=== PATIENT | male | born 1955 | race Caucasian/White ===

== ENCOUNTER 2023-05-07 12:52 | Emergency (ER) | payer SELFPAY ==
[2023-05-07 13:00] VITALS: BP 192/85; PULSE 65; RESP 16; TEMP 36.9; O2SAT 98
[2023-05-07] MEDS: Acetaminophen 500 MG TAB 1000 MG PO (13:43)
[2023-05-07] MEDS: Ketorolac 15 MG/ML VIAL IM (13:45)
--- NOTE | 2023-05-07 13:58 | DI.RAD_ITS ---
Exam(s) XR ELBOW LT COMPLETE EXAM: XR ELBOW LT COMPLETE CLINICAL HISTORY: dog bite, deep puncture x 2. TECHNIQUE: 2D digital imaging was performed. COMPARISON: No exams were available for comparison FINDINGS: 3 views No evidence of acute fracture or joint effusion and there is no swelling of the olecranon bursa. No evidence of fracture of the radial head and neck. Mild degenerative changes are noted on the lateral aspect of the radial head. No loose intra-articular bodies. No osteochondral defects of level capi tellum and trochlea. No loose intra-articular bodies. Bone density normal. No osseous lesions No radiopaque foreign body evident. IMPRESSION: No fracture or joint effusion. No radiopaque foreign body seen. DATA REPOSITORY: RADIATION DOSE DELIVERED:
--- NOTE | 2023-05-07 14:23 | ED.GENADUL_ITS ---
Discharge Plan Disposition Patient Disposition: Home Condition: Good Discharge Details Clinical Impression: Dog bite of left elbow, Laceration of left elbow Primary Care Provider: Kati,Local ED Provider: Ammy Little Home Meds and New Rx's Prescriptions: New amoxicillin-pot clavulanate 875-125 mg tablet 1 tab PO Q12H Qty: 20 0RF amoxicillin-pot clavulanate 875-125 mg tablet 1 tab PO Q12H Qty: 20 0RF amoxicillin-pot clavulanate 875-125 mg tablet 1 tab PO Q12H Qty: 20 0RF No Action calcium carbonate-vitamin D3 [Calcium + D] 600 mg-5 mcg (200 unit) Tablet 1 tab PO DAILY aspirin [Aspir-81] 81 mg Tablet,Delayed Release (Dr/Ec) 81 mg PO DAILY ferrous fumarate 55 mg (18 mg iron) Tablet Extended Release 55 mg PO DAILY tamsulosin [Flomax] 0.4 mg Capsule 0.4 mg PO DAILY irbesartan 150 mg Tablet 150 mg PO DAILY Discharge Instructions Instructions: Animal Bite (ED), Laceration (ED) Additional Instructions: Take the antibiotic twice a day until it is all gone. Take tylenol and ibuprofen over the counter as needed for pain; follow the directions on the bottle. Keep your wound clean and dry. You can use antibiotic ointment once a day. Follow up with your primary care doctor for removal of your sutures. Return to the emergency department for new or worsening symptoms including thick green/white discharge from your wound, severe pain, numbness/tingling, difficulty using your arm, fever, or if you have any other concerns. Medical Decision Making 67yo M with HTN, s/p TAVR on baby aspirin, presenting for dog bite to left elbow; friend's dog, reportedly UTD on immunizations. Unknown last tetanus. Vital signs reassuring, two puncture wounds to left elbow. No indication of neurovascular compromise on exam. Tylenol and Toradol for pain, teatnus updated, PO augment. Plain film elbow reviewed, no displaced fracture or foreign body on my view, agree with radiology read below. Given proximity to joint, orthopedics consulted, wound washed out at bedside. Discharged home; discharge instructions including return precautions were reviewed with patient who verbalized understanding. All questions were answered and they are in full agreement with the plan. Imaging Data Radiologic Study: Imaging: X-Ray Radiologist's impression: IMPRESSION: No fracture or joint effusion. No radiopaque foreign body seen. HPI General Mode of arrival: ambulatory . Date/Time Provider Initiated Documentation: 05/07/23 13:07 . Limitations to Documentation: no limitations . Information obtained by: patient . HPI Narrative: 67yo M with HTN, s/p TAVR on baby aspirin, presenting for dog bite.? Friend's dog (chocolate lab type) bit his left elbow.? Did not fall or strike his head.? No pain or injury elsewhere.? States no numbness/tingling and that he is able to move his arm normally.? He was in his usual state of health prior to this event.? No fevers, chills, rash, nausea, vomiting, chest pain, shortness of breath, or other concerns. Dog reportedly UTD on immunizations. Unknown last tetanus. Related Data Home Medications Medication Instructions Recorded Confirmed amoxicillin 875 mg-potassium 1 tab PO Q12H #20 tabs 05/07/23 clavulanate 125 mg tablet amoxicillin 875 mg-potassium 1 tab PO Q12H #20 tabs 05/07/23 clavulanate 125 mg tablet amoxicillin 875 mg-potassium 1 tab PO Q12H #20 tabs 05/07/23 clavulanate 125 mg tablet aspirin 81 mg tablet,delayed 81 mg PO DAILY 05/07/23 05/07/23 release calcium carbonate 600 mg-vitamin 1 tab PO DAILY 05/07/23 05/07/23 D3 5 mcg (200 unit) tablet ferrous fumarate 55 mg (18 mg 55 mg PO DAILY 05/07/23 05/07/23 iron) tablet,extended release irbesartan 150 mg tablet 150 mg PO DAILY 05/07/23 05/07/23 tamsulosin 0.4 mg capsule (Flomax) 0.4 mg PO DAILY 05/07/23 05/07/23 Previous Rx's Medication Instructions Recorded amoxicillin 875 mg-potassium 1 tab PO Q12H #20 tabs 05/07/23 clavulanate 125 mg tablet amoxicillin 875 mg-potassium 1 tab PO Q12H #20 tabs 05/07/23 clavulanate 125 mg tablet amoxicillin 875 mg-potassium 1 tab PO Q12H #20 tabs 05/07/23 clavulanate 125 mg tablet Allergies Allergy/AdvReac Type Severity Reaction Status Date / Time No Known Allergies Allergy Unverified 05/07/23 13:07 General Stated Complaint: AnimalBite LALO: 3 Review of Systems Narrative: see HPI PFSH All Active Problems (Updated 05/07/23 @ 17:14 by Ammy Little MD) Dog bite of left elbow (Acute) Laceration of left elbow (Acute) Social History Smoking/Tobacco Use Status: Unknown Smoking risk assessment performed?: Yes Exam Narrative Exam Narrative: General: Alert, well appearing, well nourished Head: Normocephalic, atraumatic Neck: Trachea midline, Neck supple. Cardiac: RRR, no murmurs appreciated Resp: No respiratory distress. CTAB. Abd: Soft, non-distended, nontender : No suprapubic tenderness. Extremities: No deformities. No peripheral edema. Left elbow with two ~0.5cm puncture wounds to elbow medial and anterior aspects of joint. Distal strength, pulses, and sensation intact. Neurologic: GCS 15. Moves all extremities freely against gravity Course Vital Signs Vital signs: Vital Signs Temperature 36.9 C 05/07/23 13:00 Pulse 65 05/07/23 13:00 Respiratory Rate 16 05/07/23 13:00 Blood Pressure 192/85 H 05/07/23 13:00 Pulse Oximetry 98 05/07/23 13:00 Temperature 36.9 C 05/07/23 13:00 Temperature Source Skin 05/07/23 13:00 Pulse 65 05/07/23 13:00 Respiratory Rate 16 05/07/23 13:00 Blood Pressure 192/85 H 05/07/23 13:00 Blood Pressure Position Sitting 05/07/23 13:00 Pulse Oximetry 98 05/07/23 13:00 Oxygen Delivery Method Room Air 05/07/23 13:00 Oxygen Flow Rate 0 05/07/23 13:00 Pain Level 6 05/07/23 13:00
[2023-05-07] MEDS: Amoxicillin 875/Clav. 125 TAB PO (17:35)
--- NOTE | 2023-05-07 23:30 | W.ORTHOCONSU ---
Date of service: 05/07/23 Time of Service: 16:10 History of Present Illness History of Present Illness Chief Complaint: Left Elbow Dog Bite Narrative: Gm is a 67-year-old active male who was unfortunately attacked by a Labrador dog earlier today. The dog was thought to be caged but escaped and attacked him and his , causing an injury to the left elbow. There is some bleeding from the left elbow from 2 puncture type wounds. Given the location near the elbow I was called for consultation. He denies any significant pain with gentle elbow range of motion. The bleeding has now stopped. He denies numbness or tingling. Per report, the dog is up-to-date on all necessary vaccines and the contact information for the dog's assembly and packing supervisor is known. Consults Consult date: 05/07/23 Requesting physician: Ammy Little Consult Reason Deep Dog Bite Laceration to Left Elbow Assessment and Plan Assessment and plan (1) Laceration of left elbow: Status: Acute Assessment and plan: Fam is a 67-year-old active male who unfortunate was attacked by dog today resulting in 2 lacerations to his left elbow. They both penetrate down into the deeper layers. However, there is no apparent disruption of the deeper muscles or tendons about the extensor wad of the left elbow for the first, more radial lacerations. The more dorsal laceration is adjacent to the radial head and the olecranon and could be in the location of the joint as it is not nearby the soft spot of the lateral elbow joint. However, there is no air on the x-ray. There is no crepitus on exam. There is no expressible fluid or draining fluid to suggest that involves the joint. I did discuss potentially a joint challenge but I do not think that is indicated at this time given the benign examination. There is a small tenderness structure seen in the base of the more lateral wound but it has no clear origin. And there is no instability with elbow testing. Therefore this point I recommend an aggressive irrigation and debridement of these wounds, done at the bedside. I loosely closed the 2 wounds with 4-0 nylon. The wounds were dressed with Xeroform, 4 x 4's, Kerlix and Coban wrap. Suture should be removed between 7 to 10 days with repeat evaluation. Review of Systems All systems reviewed & are unremarkable except as noted in HPI and below PFSH All Active Problems Dog bite of left elbow (Acute) Laceration of left elbow (Acute) Social History Smoking/Tobacco Use Status: Unknown Smoking risk assessment performed?: Yes Exam Narrative Exam Narrative: Sitting up in the exam room. No acute distress. Alert and oriented x3. Head is normocephalic and atraumatic. Evaluation of the left upper extremity shows 2 puncture type lacerations about the elbow. The first is more lateral than dorsal, overlying the extensor wad and brachioradialis. It is approximately 2 cm in length and does involve some deep muscle although muscle is protruding through the wound itself. This is a clean wound without gross contamination. A second laceration approximately 2 cm, is seen slightly more dorsal around the location of the radial head in between it and the ulna. There is no draining fluid. There is no active bleeding. There is no pain with gentle passive extension and flexion of the elbow. Direct pressure of the elbow joint away from this location does not show any expressible fluid. There is no crepitus with range of motion. There is a small white structure seen at the base of the wound which does not have any clear identifiable structure. Elbow was tested for stability with varus and valgus stress at 0 and 90 degrees of flexion and has no signs of instability. Intact elbow flexion extension actively. Intact wrist extension and flexion. Sensation intact to light touch over the median, radial, ulnar nerve. Palpable radial pulse. Results Last Vital Signs Temp 36.9 C 05/07/23 13:00 Pulse 65 05/07/23 13:00 Resp 16 05/07/23 13:00 BP 192/85 H 05/07/23 13:00 Pulse Ox 98 05/07/23 13:00 Imaging Imaging Studies: X-ray of the left elbow shows some skin and soft tissue disruption but no air in the soft tissues. No air in the joint. No effusion. Procedures Laceration Left elbow: Site: upper extremity (Elbow) Side (if applicable): left Size (cm): 2 Description: linear Depth: involves muscle layer Anesthetic used: lidocaine 1% Anesthesia technique: local infiltration Amount (ml): 5 Pre-repair: wound explored and irrigated extensively Skin layer closed with: other (Nylon) Size (cm): 4-0 Left elbow-dorsal: Site: upper extremity (Elbow) Side (if applicable): left Size (cm): 2 Description: linear Depth: involves muscle layer Anesthetic used: lidocaine 1% Anesthesia technique: local infiltration Amount (ml): 5 Pre-repair: wound explored, irrigated extensively and deep structures intact Skin layer closed with: other (Nylon) Size (cm): 4-0
== END 2023-05-07 17:48 | disposition home or self-care (01) ==
PROVIDERS: Emergency Provider Student in an Organized Health Care Education/Training Program
DX: S51.012A Laceration without foreign body of left elbow, initial encounter (principal); S51.052A Open bite, left elbow, initial encounter; M25.522 Pain in left elbow
CPT/HCPCS: 12032; 90471; 96372; 99283; 73080; 99284; J1885